=== PATIENT | male | born 1985 | race American Indian/Alaskan Native ===

== ENCOUNTER 2017-08-20 09:43 | Inpatient (IN) | payer MEDICARE ==
--- NOTE | 2017-08-20 10:11 | ED PDOC ---
Arrival/HPI - General Chief Complaint: Psychiatric Evaluation Time Seen by Provider: 08/20/17 10:03 Historian: Patient - History of Present Illness Narrative History of Present Illness (Text): 08/20/17 10:20 32yr old male presents today as transfer from [facility] for psychiatric admission. Patient states he is feeling depressed and is having thoughts of suicide. Patient denies headache dizziness or weakness. Denies chest pain or shortness of breath. Denies fevers or chills. Past Medical History - Provider Review Nursing Documentation Reviewed: Yes - Travel History Have you recently traveled outside [place] w/in the past 3 mons?: No - Tetanus Immunization Tetanus Immunization: Unknown - Cardiac Hx Cardiac Disorders: No - Pulmonary Hx Respiratory Disorders: No - Neurological Hx Neurological Disorder: No - HEENT Hx HEENT Disorder: No - Renal Hx Renal Disorder: No - Endocrine/Metabolic Hx Endocrine Disorders: No - Hematological/Oncological Hx Blood Disorders: No - Integumentary Hx Dermatological Disorder: No - Musculoskeletal/Rheumatological Hx Musculoskeletal Disorders: No - Gastrointestinal Hx Gastrointestinal Disorders: No - Genitourinary/Gynecological Hx Genitourinary Disorders: No - Psychiatric Hx Psychophysiologic Disorder: Yes Hx Psychosis: Yes Hx Schizophrenia: Yes Hx Substance Use: Yes Family/Social History - Physician Review Nursing Documentation Reviewed: Yes Family/Social History: Unknown Family HX Smoking Status: Heavy Smoker > 10 Cigarettes Daily Hx Alcohol Use: No Hx Substance Use: Yes Substance used: cocaine Allergies/Home Meds Allergies/Adverse Reactions: Allergies potato Allergy (Verified 08/20/17 09:57) ANGIOEDEMA raw potato skins Home Medications: Home Meds Medication Instructions Recorded Confirmed Unobtainable 08/20/17 08/20/17 Review of Systems - Review of Systems Constitutional: absent: Fatigue, Fevers Eyes: absent: Vision Changes, Photophobia, Eye Pain ENT: absent: Sore Throat Respiratory: absent: SOB, Cough Cardiovascular: absent: Chest Pain, Palpitations Gastrointestinal: absent: Abdominal Pain, Nausea, Vomiting Genitourinary Male: absent: Dysuria Musculoskeletal: absent: Arthralgias Skin: absent: Rash Neurological: absent: Headache, Dizziness Psychiatric: Depression, Suicidal Ideation Physical Exam Vital Signs Reviewed: Yes Vital Signs Temp Pulse Resp BP Pulse Ox 08/20/17 09:49 98.1 F 82 16 142/61 97 Temperature: Afebrile Blood Pressure: Normal Pulse: Regular Respiratory Rate: Normal Appearance: Positive for: Well-Appearing, Non-Toxic, Comfortable Pain Distress: None Mental Status: Positive for: Alert and Oriented X 3 - Systems Exam Head: Present: Atraumatic Pupils: Present: PERRL Extroacular Muscles: Present: EOMI Conjunctiva: Present: Injected (left eye; + white discharge noted; slight conjunctival injection noted to lateral aspect; no periorbital edema or erythema or tenderness. ) Mouth: Present: Moist Mucous Membranes Neck: Present: Normal Range of Motion Respiratory/Chest: Present: Clear to Auscultation Cardiovascular: Present: Regular Rate and Rhythm Upper Extremity: Present: Normal ROM Lower Extremity: Present: Normal ROM Neurological: Present: GCS=15, Speech Normal Skin: Present: Warm, Dry, Normal Color. No: Rashes Psychiatric: Present: Alert, Oriented x 3, Depressed Mood, Suicidal Ideation Medical Decision Making ED Course and Treatment: 08/20/17 10:22 32-year-old male with depression and suicidal ideation psychiatric transfer from [facility] K 3.0 potassium was replaced prior to arrival. Patient with irritation/left eye conjunctival injection and white discharge. Patient claims his eye always looks like this because he has dyed his eyelashes. Patient is refusing any medications at this time for possible conjunctivitis. pt accepted to psychiatric floor dr. del rio/dr. pratt. impression; depression, SI admit to behavioral health floor Disposition/Present on Arrival - Present on Arrival Any Indicators Present on Arrival: No History of DVT/PE: No History of Uncontrolled Diabetes: No Urinary Catheter: No History of Decub. Ulcer: No History Surgical Site Infection Following: None - Disposition Have Diagnosis and Disposition been Completed?: Yes Diagnosis: Suicidal ideation, Depression Disposition: HOSPITALIZED Disposition Time: 10:11 Patient Plan: Admission Patient Problems: Current Active Problems Problem Status Onset Depression Acute Suicidal ideation Acute Condition: FAIR Forms: trueEX (Ecuadorean)
[2017-08-20] MEDS ORDERED: Magnesium Hydroxide Susp 30 ml UD PO PRN (10:56)
[2017-08-20] MEDS ORDERED: Alum-Mag Hydrox-Simethicone Susp (30 mL) PO PRN (10:56)
[2017-08-20 10:58] VITALS: O2SAT 96
[2017-08-20 11:37] VITALS: BMI 22.1
[2017-08-20] MEDS ORDERED: DiphenhydrAMINE 50 mg/ml Inj IM PRN (12:13)
[2017-08-21 06:44] VITALS: RESP 20
--- NOTE | 2017-08-21 13:16 | PCM.PSYCH ---
Initial Psychiatric Evaluation - Initial Psychiatric Evaluation Type of Admission: Voluntary Legal Status: Capacity (patient has capacity to sign consent for treatment) Chief Complaint (in patient's own words): "I was feeling kind of off" Patient's Reaction to Hospitalization: pt was transferred from the [facility] for evaluation of depressive/ psychotic symptoms, possible suicidal ideation with the plan to jump off the bridge. History of Present Illness and Precipitating Events: shortly pt is 32yo Male with reported h/o schizophrenia, multiple psychiatric admissions in the past, most recent AMA 05/28/17, pt was noncompliant with medications and f/u appts, pt is currently homeless, pt presented himself at the ED at [facility], saying that he has "suicidal thoughts with plan to jump off a bridge", pt also presented to be psychotic, [facility] did not have beds available, pt was transferred to the [facility] yesterday, transfer was uneventful. pt was seen in his room today, pt presented to have acceptable personal hygiene , had some psychomotor retardation. good ADLs. as per report pt was paranoid and guarded yesterday "Other people plotting on me ;" People trying to hurt me, kill me", but presented better today. pt was compliant with medications, no behavioral issues. pt said he was non compliant with medications, pt said he is not sure what meds he supposed to take, pt reported he was on Risperdal and Haldol before, as per record pt was on Risperdal consta, but does not remember when it was given to him. pt said that he likes Haldol better, pt said he would consider to be resumed on Haloperidol. pt was answering for all of the questions only one word "yes" or "no". pt said he was feeling paranoid, but reported to feel better now. pt said he was having thoughts of harming self but "not anymore". pt is very poor historian. pt reported to feel anxious, "but not now". pt reported that he is not using any drugs and does not have h/o substance abuse , but as per report pt has h/o cocaine and benzodiazepines abuse, pt denied drinking alcohol, smokes about a pack a day, counseling provided, nicotine patch offered, but pt was not receptive and pt refused to have a nicotine patch. pt denied h/o aggression or legal charges, but as per record pt has h/o aggression to the family/mother. pt denied h/o abuse (emotional, physical and sexual). past psychiatric h/o: multiple psychiatric admissions, pt reported only one suicidal attempt "a while ago", reported being admitted to [facility] "for couple of weeks, because I overdosed on pills", as per record from [facility] Pt has a prior hx of suicide attempts; In 2005, Pt "swallowed a whole bunch of blood thinners", and in 2011 Pt lacerated both wrists. Medical h/o: denied Family h/o: denied, but as per record from [facility], pt's mother has h/o mental illness. Social h/o: as above, pt is homeless, does not work. Vital Signs Temp Pulse Resp BP Pulse Ox 08/21/17 06:44 97.7 F 60 20 108/62 08/20/17 15:37 57 L 112/72 08/20/17 10:57 97.6 F 79 17 101/67 96 08/20/17 10:54 16 08/20/17 09:49 98.1 F 82 16 142/61 97 Current Medications: Active Medications Generic Name Dose Route Start Last Admin Trade Name Freq PRN Reason Stop Dose Admin Acetaminophen 650 mg 08/20/17 10:56 Tylenol 325mg Tab PO Q4 PRN Pain, Mild (1-3) Al Hydrox/Mg Hydrox/Simethicone 30 ml 08/20/17 10:56 Maalox Plus 30 Ml PO DAILY PRN Upset Stomach Benztropine Mesylate 0.5 mg 08/20/17 22:00 08/21/17 08:59 Cogentin PO 0.5 mg [facility] JAKUB Administration Diphenhydramine HCl 50 mg 08/20/17 12:13 Benadryl IM Q6H PRN Agitation Diphenhydramine HCl 50 mg 08/20/17 12:15 Benadryl PO Q6H PRN Agitation Haloperidol 5 mg 08/20/17 12:15 Haldol PO Q6H PRN Agitation Protocol Haloperidol Lactate 5 mg 08/20/17 12:11 Haldol IM Q6H PRN agitation/psychosis Protocol Lorazepam 2 mg 08/20/17 12:12 Ativan IM Q6H PRN agitation/pspychosis Protocol Lorazepam 2 mg 08/20/17 12:15 Ativan PO Q6H PRN Agitation Protocol Magnesium Hydroxide 30 ml 08/20/17 10:56 Milk Of Magnesia PO DAILY PRN Constipation Risperidone 1 mg 08/20/17 22:00 08/21/17 08:59 Risperdal Tab PO 1 mg [facility] JAKUB Administration Protocol Sertraline HCl 50 mg 08/21/17 08:00 08/21/17 08:59 Zoloft PO 50 mg DAILY JAKUB Administration Trazodone HCl 50 mg 08/20/17 12:10 Desyrel PO HS PRN Insomnia Past Psychiatric History - Past Psychiatric History Previous Treatment History: Inpatient Prior Professional Help: see HPI Prior Psychiatric Treatment: see HPI At what hospital: see HPI Duration: see HPI Nature of Treatment: see HPI Explanation of prior treatment: see HPI History of Abuse: see HPI History of ETOH/Drug Use: see HPI History of Family Illness: see HPI Pertinent Medical Hx (Current Medical&Sleep Prob, Allergies): Allergies Allergy/AdvReac Type Severity Reaction Status Date / Time potato Allergy ANGIOEDEMA Verified 08/20/17 09:57 raw potato skins Allergy ANGIOEDEMA Uncoded 09/13/16 19:37 Risperdal 05/25/17 Zoloft 05/25/17 Risperdal 1 mg PO BID 08/20/17 Zoloft 100 mg PO DAILY 08/20/17 Review of Systems - Review of Systems Systems not reviewed;Unavailable: Acuity of Condition - EENT Eyes: As Per HPI Ears: As Per HPI Nose/Mouth/Throat: As Per HPI - Cardiovascular Cardiovascular: As Per HPI - Respiratory Respiratory: As Per HPI - Gastrointestinal Gastrointestinal: As Per HPI - Genitourinary Genitourinary: As Per HPI - Reproductive: Male Reproductive:Male: As Per HPI - Musculoskeletal Musculoskeletal: As Par HPI - Integumentary Integumentary: As Per HPI - Neurological Neurological: As Per HPI - Psychiatric Psychiatric: As Per HPI - Endocrine Endocrine: As Per HPI - Hematologic/Lymphatic Hematologic: As Per HPI Mental Status Examination - Personal Presentation Personal Presentation: Looks stated age - Affect Affect: Flat - Motor Activity Motor Activity: Psychomotor Retardation - Reliability in Providing Information Reliability in Providing Information: Poor, due to alteration in thoughts, Poor , due to altered mood, Poor, due to cognitve impairment - Speech Speech: Disorganized, Other (poverty of speech) - Mood Mood: Depressed - Formal Thought Process Formal Thought Process: Hallucinations, Delusions, Paranoia - Hallucinations/Delusions Delusions: Persecution - Obsessions/Compulsions Obsessions: None Compulsions: None - Cognitive Functions Orientation: Person, Place Attention/Concentration: Easily distracted Abstract Thinking: [place] Estimate of Intelligence: Below average Judgement: Intact, as evidence by: Insight regarding need for hospitalization - Risk Risk: Self-mutilation, Diminished functioning - Strength & Assets Inventory Strength & Assets Inventory: Cooperative - Limitations Limitations: Other (chronic noncompliance with meds and f/u appts) DSM 5 DX - DSM 5 DSM 5 Diagnosis: as per h/o: schizophrenia - Recommended/Plan of Treatment Treatment Recommendations and Plan of Treatment: Milieu/structure/supportive therapy Medical consult appreciated, see medical team note for more detailed info SW consultation for discharge plan and social issues Med management Risperdal 1 mg PO BID was started yesterday pt wants to be on Haldol, will consider, with the plan to give Haldol Dec Zoloft was resumed depakote will be considered Family involvement Follow up on labs Will monitor closely Pt was educated about risk/benefits and alternatives of medications, coping strategies (safety plan, suicide prevention), relapse prevention, importance of follow up with psychiatrist and therapist, stay away from drugs/alcohol/smoking as per staff pt submitted 48hr notice today will consider to screen for involuntary commitment or AMA Projected ELOS: 7days Prognosis: guarded Discharge Plan and Discharge Criteria: Pt will be not depressed or manic, will be more hopeful, will be not psychotic or anxious, will be not having thoughts of harming self or others, will be tolerating medications well, will not have major side effects, will be able to function, will not pose threat to self or others. - Smoking Cessation Smoking Cessation Initiated: No Reason for not providing: pt refused.
--- NOTE | 2017-08-21 15:17 | PCM.BM ---
<Ned Murguia - Last Filed: 08/21/17 15:15> Treatment Plan Problems - Problems identified on initial assessmt De Date Initiated: 08/20/17 Time Initiated: 18:00 Assessment reference: NA Status: Active Priority: 1 Ineffective Coping Date Initiated: 08/20/17 Time Initiated: 18:00 Assessment reference: NA Status: Active Priority: 2 Social Isolation Date Initiated: 08/20/17 Time Initiated: 18:00 Assessment reference: NA Priority: 3 Auditory Hallucinations Date Initiated: 08/20/17 Time Initiated: 18:00 Assessment reference: NA Status: Active Priority: 4 Visual Hallucinations Date Initiated: 08/20/17 Time Initiated: 18:00 Assessment reference: NA Status: Active Priority: 5 - Milieu Protocol Milieu Narrative: Milieu/structure/supportive therapy Medical consult appreciated, see medical team note for more detailed info consultation for discharge plan and social issues Med management Risperdal 1 mg PO BID was started yesterday pt wants to be on Haldol, will consider, with the plan to give Haldol Dec Zoloft was resumed depakote will be considered Family involvement Follow up on labs Will monitor closely Pt was educated about risk/benefits and alternatives of medications, coping strategies (safety plan, suicide prevention), relapse prevention, importance of follow up with psychiatrist and therapist, stay away from drugs/alcohol/smoking as per staff pt submitted 48hr notice today will consider to screen for involuntary commitment or AMA Discharge/Continuing Care - Treatment Team Participation Patient/Family/SO Statement: Milieu/structure/supportive therapy Medical consult appreciated, see medical team note for more detailed info consultation for discharge plan and social issues Med management Risperdal 1 mg PO BID was started yesterday pt wants to be on Haldol, will consider, with the plan to give Haldol Dec Zoloft was resumed depakote will be considered Family involvement Follow up on labs Will monitor closely Pt was educated about risk/benefits and alternatives of medications, coping strategies (safety plan, suicide prevention), relapse prevention, importance of follow up with psychiatrist and therapist, stay away from drugs/alcohol/smoking as per staff pt submitted 48hr notice today will consider to screen for involuntary commitment or AMA <Kelsey De Jesus - Last Filed: 08/22/17 14:56> Family Contact Family involvement: Famliy/SO not involved Family contact: Patient declines to allow family contact at present
[2017-08-21] MEDS ORDERED: Ciprofloxacin 0.3% OPTH SOLN OU SCH (16:00)
[2017-08-21] MEDS: Tobramycin/Dexamethasone (Tobradex) Opth Sol (2.5 ml) OU SCH (21:51)
--- NOTE | 2017-08-22 00:04 | PN ---
DATE: 08/21/17 LOCATION: This patient is seen in the Behavioral Care Unit. The patient is in room 516, bed 1. SUBJECTIVE: Patient was admitted via the emergency room. The patient was transferred from [facility] with admission for depression and further management. The patient's history, he has a history of anxiety and depression. The patient is on many medications : Ativan, the patient is on Cogentin, Haldol, Risperdal, and Zoloft. The patient complains of some discomfort in the eye and on examination, the patient might have mild conjunctivitis. PHYSICAL EXAMINATION: VITAL SIGNS: Pulse is 61, blood pressure 103/67, respirations are 20, temperature 97.7, O2 saturation 96% on room air. HEENT: Head is normocephalic. ocular examination shows evidence of mild conjunctivitis possibly in the left eye. HEART: Within normal limits. LUNGS: Within normal limits. ABDOMEN: Soft. Liver and spleen not palpable. 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 LABORATORY DATA: His blood work not ready yet. MEDICATIONS: As mentioned. The patient's listed medications are Ativan, Benadryl. Patient is on Cogentin and Desyrel 50 mg at bedtime, Haldol p.r.n. for agitation. Will order Cipro eye drops for conjunctivitis. Maurice Ferrera MD MTDJacky
[2017-08-22] MEDS: Tobramycin/Dexamethasone (Tobradex) Opth Sol (2.5 ml) OU SCH ×2 (09:44→22:09)
--- NOTE | 2017-08-22 12:07 | PN ---
DATE: LOCATION: The patient is in the Behavioral Care Unit. The patient is in room 516, bed 1. SUBJECTIVE: The patient is seen this morning. He is sleeping and I woke him up to do a culture of the left eye. The patient has redness involving the entire conjunctiva. The right eye appears to be clinically within normal limits. The patient has history of depression, suicidal tendency and aggressive behavior. The patient is on multiple medications, Haldol and Risperdal. The patient is on Ativan and also, Zoloft. The patient is given doxycycline p.o. twice a day for now for the eye infection. The patient is also getting TobraDex eye drops twice a day for the eye infection. PHYSICAL EXAMINATION VITAL SIGNS: The pulse is 60, blood pressure 90/53. The patient's temperature 98.2, O2 sat is 96% on room air. HEENT: The patient's head is normocephalic. The eye examination, his vision seems to be clinically okay, but the patient does have some irritation in the left eye and minimal discharge. NECK: The thyroid is not enlarged. The JVP is flat. LUNGS: Trachea central. Breath sounds are vesicular. No adventitious sounds. HEART: Normal sinus rhythm. S1 and S2 present. ABDOMEN: Soft. Liver and spleen not palpable. No acute findings. CENTRAL NERVOUS SYSTEM: He is conscious, seemed to be answering all the questions. ASSESSMENT AND PLAN: The patient states that he had the eye infection for a couple of days prior to coming to the [facility] in [place]. We will treat the patient with current medications and follow up very closely. His diet is heart-healthy diet. Maurice Ferrera MD DON
--- NOTE | 2017-08-22 16:10 | PCM.BM ---
- Diagnosis (1) Schizophrenia Status: Acute Interventions: 08/21/17 13:18 Psychoeducation supportive therapy Psychopharmacology/adjustment of medications as needed/ monitoring possible side effects Evaluate pt on daily basis Compliance with medications and follow up appointments Long acting medication if pt is noncompliant with pill form Suicide and homicide risk assessment and prevention, coping strategies, safety plan Relapse prevention Reduction of symptoms Improve functional status Possible assertive community treatment Cognitive behavioral therapy Family involvement Possible social skill training as outpatient (2) Cocaine abuse Status: Acute Interventions: 08/21/17 13:19 Maintaining sobriety Relapse prevention Possible rehabilitation Motivational interviewing 12-step programs: AA meetings - Milieu Protocol Milieu Narrative: Milieu/structure/supportive therapy Medical consult appreciated, see medical team note for more detailed info SW consultation for discharge plan and social issues Med management Risperdal 1 mg PO BID was started yesterday pt wants to be on Haldol, will consider, with the plan to give Haldol Dec Zoloft was resumed depakote will be considered Family involvement Follow up on labs Will monitor closely Pt was educated about risk/benefits and alternatives of medications, coping strategies (safety plan, suicide prevention), relapse prevention, importance of follow up with psychiatrist and therapist, stay away from drugs/alcohol/smoking as per staff pt submitted 48hr notice today will consider to screen for involuntary commitment or AMA Discharge/Continuing Care - Treatment Team Participation Patient/Family/SO Statement: Milieu/structure/supportive therapy Medical consult appreciated, see medical team note for more detailed info SW consultation for discharge plan and social issues Med management Risperdal 1 mg PO BID was started yesterday pt wants to be on Haldol, will consider, with the plan to give Haldol Dec Zoloft was resumed depakote will be considered Family involvement Follow up on labs Will monitor closely Pt was educated about risk/benefits and alternatives of medications, coping strategies (safety plan, suicide prevention), relapse prevention, importance of follow up with psychiatrist and therapist, stay away from drugs/alcohol/smoking as per staff pt submitted 48hr notice today will consider to screen for involuntary commitment or AMA
--- NOTE | 2017-08-22 16:23 | PCM.PYCHPN ---
Psychiatric Progress Note - Psychiatric Progress Note Patient seen today, length of contact: 30 minutes Patient Chief Complaint: "I needed to have ICMS worker" Problems Identified/Issues Discussed: Suicide/ homicide prevention, past psychiatric h/o, current psychiatric symptoms , medical problems, risk/benefits and alternatives of medications, medications compliance, coping strategies, substance abuse h/o, relapse prevention, importance of follow up with psychiatrist and therapist, discharge plan. Medical Problems: patient relatively healthy Diagnostic Results: Vital Signs Temp Pulse Resp BP Pulse Ox 08/22/17 16:03 64 67/60 L 08/22/17 07:30 98.2 F 60 20 93/53 L 08/21/17 15:38 61 103/67 08/21/17 06:44 97.7 F 60 20 108/62 08/20/17 15:37 57 L 112/72 08/20/17 10:57 97.6 F 79 17 101/67 96 08/20/17 10:54 16 08/20/17 09:49 98.1 F 82 16 142/61 97 DSM 5 Symptoms Update: shortly pt is 32yo Male with reported h/o schizophrenia, multiple psychiatric admissions in the past, most recent AMA 05/28/17, pt was noncompliant with medications and f/u appts, pt is currently homeless, pt presented himself at the ED at [facility], saying that he has "suicidal thoughts with plan to jump off a bridge", pt also presented to be psychotic, [facility] did not have beds available, pt was transferred to the [facility] yesterday, transfer was uneventful. pt was seen at the treatment team meeting, patient had some psychomotor retardation. good ADLs. at the time of admission patient presented to be paranoid and guarded "Other people plotting on me;" People trying to hurt me, kill me", but presented better today. pt was compliant with medications, no behavioral issues. pt said that he likes Haldol better, willing to be switched to haloperidol. pt was answering for all of the questions only one word "yes" or "no", pt was keep repeating the same question about the ICMS worker even SW explained pt twice that pt will be referred for ICMS. pt said he was feeling paranoid, but reported to feel better now. pt said he was having thoughts of harming self but "not anymore". pt is very poor historian. yesterday patient submitted 48 hour notice, requesting discharge, but today patient presented 48 hour notice willing to continue treatment. Patient tolerates medications well, no side effects observed or reported, aims 0 , no EPS. Impression: Schizophrenia spectrum Cocaine abuse Medication Change: Yes (Risperdal discontinued, haloperidol started) Medical Record Reviewed: Yes Consults ordered or reviewed: medical consult was appreciated for conjunctivitis patient was started on antibiotics eye drops patient was advised to wash hands frequently Mental Status Examination - Cognitive Function Orientation: Person, Place Memory: Intact Attention: Poor Concentration: Poor Association: Loose Fund of Knowledge: Poor - Mood Mood: Depressed - Affect Affect: Flat - Formal Thought Process Formal Thought Process: Hallucinations, Delusions, Paranoia - Suicidal Ideation Suicidal Ideation: No - Homicidal Ideation Homicidal Ideation: No Goal/Treatment Plan - Goal/Treatment Plan Need for Continued Stay: Remain at risks for inpatient hospitalization, Severe depression anxiety, Discharge may exacerbated symptoms, Failed transitioning, Severe functional impairment Progress Toward Problem(s) and Goals/Treatment Plan: Milieu/structure/supportive therapy Medical consult appreciated, see medical team note for more detailed info SW consultation for discharge plan and social issues Med management Risperdal was discontinued pt wants to be on Haldol, 5 mg twice a day scheduled with a plan to give Haldol Decanoate Zoloft was resumed 0 mg daily depakote was started to 50 mg twice a day for mood stabilization Family involvement Follow up on labs Will monitor closely Pt was educated about risk/benefits and alternatives of medications, coping strategies (safety plan, suicide prevention), relapse prevention, importance of follow up with psychiatrist and therapist, stay away from drugs/alcohol/smoking patient canceled 48 hour notice, willing to stay in the hospital Estimated Date of D/C: 08/27/17
[2017-08-23 07:11] VITALS: BP 105/75; PULSE 68; TEMP 97.2
[2017-08-23] MEDS ORDERED: Divalproex 250 mg DR (BID formulation) PO SCH (08:00)
[2017-08-23] MEDS: Tobramycin/Dexamethasone (Tobradex) Opth Sol (2.5 ml) OU SCH (09:03)
--- NOTE | 2017-08-23 11:02 | PN ---
DATE: LOCATION: The patient is in [facility] in [place], [facility] Care Unit, room 516, bed 1. SUBJECTIVE: The patient was admitted for depression, suicidal tendency, and the patient is seen this morning, the eye infection in the left eye seems to be improving. We will continue current management. PHYSICAL EXAMINATION VITAL SIGNS: The patient's pulse is 68, blood pressure 105/75, respirations are 20, temperature is 97.2. HEENT: The head is normocephalic. NECK: The thyroid is not enlarged. The JVP is flat. LUNGS: Trachea is central. Breath sounds are vesicular. No adventitious sounds. HEART: Normal sinus rhythm. ABDOMEN: Soft. Liver and spleen not palpable. CENTRAL NERVOUS SYSTEM: No focal deficits are noted. The patient is able to ambulate. PLAN: We will continue the antibiotic medication for infection of the left eye, both oral and local topical. The patient's condition is improving. Overall prognosis is good. We will follow up. Maurice Ferrera MD DON
--- NOTE | 2017-08-23 14:46 | PCM.PYCHDC ---
Mental Status Examination - Mental Status Examination Orientation: Person, Place, Situation, Time Memory: Intact Mood: Neutral Affect: Constricted (but reactive) Speech: Appropriate (underproductive, but seems to be at baseline) Attention: Poor (but improved since the time of admisison) Concentration: Poor (but improved since the time of admisison) Association: Loose (but improved since the time of admisison) Fund of Knowledge: Poor (baseline) Formal Thought Process: No Impairment (at times pt guarded) Description of patient's judgement and insight: some improvement with insight pt was compliant with medications and unit rules and regulations, pt was going to groups, was calm, cooperative, socially appropriate, no behavioral incidents , no agitation, no aggression. Psychotic Thoughts and Behaviors: Pt denied v/a/t hallucinations, denied paranoid ideations, pt does not appear to be psychotic, and thought process is goal directed. Suicidal Ideation: No Current Homicidal Ideation?: No Plan: pt adamantly denied thoughts of harming self or others denied intent or plan. Discharge Summary - Discharge Note Reason for Hospitalization: pt was transferred from the [facility] for evaluation of depressive/ psychotic symptoms, possible suicidal ideation with the plan to jump off the bridge. Psychiatric History (includes Medical, Family, Personal Hx): see HPI Laboratory Data: Vital Signs Temp Pulse Resp BP Pulse Ox 08/23/17 07:11 97.2 F L 68 20 105/75 08/22/17 16:03 64 67/60 L 08/22/17 07:30 98.2 F 60 20 93/53 L 08/21/17 15:38 61 103/67 08/21/17 06:44 97.7 F 60 20 108/62 08/20/17 15:37 57 L 112/72 08/20/17 10:57 97.6 F 79 17 101/67 96 08/20/17 10:54 16 08/20/17 09:49 98.1 F 82 16 142/61 97 Consultations:: List each consultation separately and include: 1. Reason for request. 2. Findings. 3. Follow-up Consultations: medical consult was appreciated for conjunctivitis patient was started on antibiotics eye drops and po abx patient was advised to wash hands frequently Summary of Hospital Course include:: 1. Description of specific treatment plan utilized for patients during their course of treatmen. 2. Summarize the time- course for resolution of acute symptoms and/or regressed behaviors. 3. Describe issues identified and worked on during hospitalization. 4. Describe medication utilized. 5. Describe medical problems identified and treated. 6. Reassessment of suicide risk Summary of Hospital Course: shortly pt is 32yo Male with reported h/o schizophrenia, multiple psychiatric admissions in the past, most recent AMA 05/28/17, pt was noncompliant with medications and f/u appts, pt is currently homeless, pt presented himself at the ED at [facility], saying that he has "suicidal thoughts with plan to jump off a bridge", pt also presented to be psychotic, [facility] did not have beds available, pt was transferred to the [facility] yesterday, transfer was uneventful. initially pt was seen in his room pt presented to have acceptable personal hygiene, had some psychomotor retardation. good ADLs. as per report pt was paranoid and guarded yesterday "Other people plotting on me ;" People trying to hurt me, kill me", but presented better today. pt was compliant with medications, no behavioral issues. pt said he was non compliant with medications, pt said he is not sure what meds he supposed to take, pt reported he was on Risperdal and Haldol before, as per record pt was on Risperdal consta, but does not remember when it was given to him. pt said that he likes Haldol better, that is why Haldol was initiated. pt was answering for all of the questions only one word "yes" or "no". pt said he was feeling paranoid, but reported to feel better now. pt said he was having thoughts of harming self but "not anymore". pt is very poor historian. pt reported to feel anxious, "but not now". pt reported that he is not using any drugs and does not have h/o substance abuse , but as per report pt has h/o cocaine and benzodiazepines abuse, pt denied drinking alcohol, smokes about a pack a day, counseling provided, nicotine patch offered, but pt was not receptive and pt refused to have a nicotine patch. pt denied h/o aggression or legal charges, but as per record pt has h/o aggression to the family/mother. pt denied h/o abuse (emotional, physical and sexual). past psychiatric h/o: multiple psychiatric admissions, pt reported only one suicidal attempt "a while ago", reported being admitted to [facility] "for couple of weeks, because I overdosed on pills", as per record from [facility] Pt has a prior hx of suicide attempts; In 2005, Pt "swallowed a whole bunch of blood thinners", and in 2011 Pt lacerated both wrists. Medical h/o: denied Family h/o: denied, but as per record from [facility], pt's mother has h/o mental illness. Social h/o: as above, pt is homeless, does not work. Vital Signs Temp Pulse Resp BP Pulse Ox 08/21/17 06:44 97.7 F 60 20 108/62 08/20/17 15:37 57 L 112/72 08/20/17 10:57 97.6 F 79 17 101/67 96 08/20/17 10:54 16 08/20/17 09:49 98.1 F 82 16 142/61 97 pt submitted 48 hr notice twice pt requested to be d/c yesterday pt refused to rescind it patient will stabilize on the following medications: Risperdal was discontinued as per patient request Cogentin 0.5 mg twice a day for EPS Haldol 5 mg twice a day for paranoia and psychosis Depakote 250 twice a day for mood stabilization Zoloft 50 mg by mouth daily for depressive symptoms Patient tolerated medications well, no side effects observed or reported, aims 0 , no EPS. Patient was seen by medical team for conjunctivitis medical team advised to continue antibiotics by mouth and eyedrops for the next 5 days. Patient might benefit from staying in the hospital longer but patient refused to do so, patient requested to be discharged, that is why patient will leave AGAINST MEDICAL ADVICE Patient does not meet the criteria for screening by [facility]. Over the course of this hospitalization pt was attending groups, pt also had medication management, had therapeutic milieu. Overall pt improved significantly, pt's affect became brighter, pt was less depressed, has realistic future oriented plans, pt also does not appear to be psychotic, or anxious, pt was socially appropriate, no behavioral issues, pts insight improved as well and soon pt deemed to be ready for discharge. At the time of the discharge pt denied been depressed, denied thoughts of harming self or others, denied psychotic symptoms, pt appeared to be guarded, denied been anxious, pt is not in imminent danger to self or others, will be following up at [facility] program, information about follow up appointment, time and address provided to the pt, it is patient responsibility to follow up with outpatient clinic, PMD as well as specialists (see note for more detailed information). In case pt will need to obtain results of studies pending at discharge pt was provided with contact information of Psychiatric Inpatient unit [phone] as well as Medical Record Department [phone]. Nicotine patch was offered, pt declined that offer Counseling about smoking and alcohol cessation provided AA meetings as well as smoking cessation treatment program information was provided by the pt was provided with prescriptions for all of medications (please see medication reconciliation form) Pt was educated about safety plan in case of worsening of symptoms or in case of suicidal or homicidal ideation call 911 or go to the nearest ER, also was educated to take meds as prescribed and stay away from drugs, pt verbalized understanding. - Diagnosis (1) Schizophrenia Current Visit: Yes Status: Chronic Priority: High (2) Cocaine abuse Current Visit: Yes Status: Chronic Priority: Medium - Final Diagnosis (DSM 5) Condition upon Discharge: FAIR Disposition: HOME/ ROUTINE Follow-up Treatment Plan: At the time of the discharge pt denied been depressed, denied thoughts of harming self or others, denied psychotic symptoms, pt appeared to be guarded, denied been anxious, pt is not in imminent danger to self or others, will be following up at [facility] program, information about follow up appointment, time and address provided to the pt, it is patient responsibility to follow up with outpatient clinic, PMD as well as specialists (see note for more detailed information). In case pt will need to obtain results of studies pending at discharge pt was provided with contact information of Psychiatric Inpatient unit [phone] as well as Medical Record Department [phone]. Nicotine patch was offered, pt declined that offer Counseling about smoking and alcohol cessation provided AA meetings as well as smoking cessation treatment program information was provided by the pt was provided with prescriptions for all of medications (please see medication reconciliation form) Pt was educated about safety plan in case of worsening of symptoms or in case of suicidal or homicidal ideation call 911 or go to the nearest ER, also was educated to take meds as prescribed and stay away from drugs, pt verbalized understanding. Prescriptions/Medication Reconciliation: Benztropine [Cogentin] 0.5 mg PO [facility]HS #30 tab Dexamethasone/Tobramycin [Tobradex Opht Susp] 1 ml OU AMHS #1 bottle Divalproex [Depakote DR (*BID*)] 250 mg PO BID #30 tcp Doxycycline Hyclate [Doryx] 100 mg PO Q12 #10 cap Haloperidol [Haldol] 5 mg PO AMHS #30 tab Sertraline [Zoloft] 50 mg PO DAILY #14 tab - Smoking Cessation Smoking Cessation Medication prescribed: No Reason for not providing: pt refused - Antipsychotic Medications Pt discharged on 2 or more routine antipsychotic medications: No
== END 2017-08-23 16:52 | disposition left against medical advice (07) | DRG 885 ==
LOC: ED 09:43 → ERH 10:12 → UNMERGE 10:12 → MERGE 10:12 → EDUNIT# 10:12 → PSYC 10:50
PROVIDERS: ADMIT Psychiatry & Neurology Psychiatry; ATTEND Psychiatry & Neurology Psychiatry
DX: F20.9 Schizophrenia, unspecified (principal); F14.10 Cocaine abuse, uncomplicated; F32.89 Other specified depressive episodes; Z59.0 Homelessness; Z79.899 Other long term (current) drug therapy; Z91.14 Patient's other noncompliance with medication regimen; Z91.5 Personal history of self-harm; Z91.018 Allergy to other foods